=== PATIENT | male | born 1980 | race Caucasian/White ===

== ENCOUNTER 2020-04-24 12:11 | Emergency (ER) | payer SELFPAY ==
[~2020-04-24] VITALS: Ht 182.9 cm; Wt 102.0 kg
--- NOTE | 2020-04-24 12:36 | EKG ---
[address] [address] Test Date: 2020-04-24 Test Time: 12:27:57 Pat Name: MALLORY LOVE Department: Room: Gender: M Button Bradder: : 1980 Requested By: LORRIE RESENDIZ Order Number: [id number] Reading MD: Measurements Intervals [place] Rate: 78 P: 59 DC: 136 QRS: 57 QRSD: 86 T: 42 QT: 370 QTc: 425 Interpretive Statements SINUS RHYTHM NORMAL ECG RI6.02 No previous ECG available for comparison
--- NOTE | 2020-04-24 12:37 | PHYS DOC ---
Past History Past Medical History: Anxiety, Depression, Hypertension Past Surgical History: Other Alcohol Use: None Adult General Chief Complaint Chief Complaint: MULTIPLE COMPLAINTS HPI HPI Patient is a 39-year-old male patient with history of depression, anxiety, hypertension, who presents to the ED today with multiple complaints. Patient states he started bilateral ear pain with drainage, symptoms for 1 month. Denies any hearing loss. Is also complaining of 8 out of 10 substernal pressure-like chest pain, nausea, vomiting, diarrhea, patient states all the symptoms he denied days ago. Patient states a couple family members had similar symptoms a couple weeks ago. Patient denies any abdominal pain. Denies anything specifically exacerbating or relieving his chest pain. Review of Systems Review of Systems Constitutional: Denies fever or chills [] Eyes: Denies change in visual acuity, redness, or eye pain [] HENT: Denies nasal congestion or sore throat [] Respiratory: Denies cough or shortness of breath [] Cardiovascular: Reports chest pain GI: Denies abdominal pain, nausea, vomiting, bloody stools or diarrhea [] : Denies dysuria or hematuria [] Musculoskeletal: Denies back pain or joint pain [] Integument: Denies rash or skin lesions [] Neurologic: Denies headache, focal weakness or sensory changes [] All other systems were reviewed and found to be within normal limits, except as documented in this note. Allergies Allergies Allergies Coded Allergies Type Severity Reaction Last Updated Verified lisinopril Allergy Unknown 04/24/20 Yes Physical Exam Physical Exam Constitutional: Well developed, well nourished, no acute distress, non-toxic appearance. [] HENT: Normocephalic, atraumatic, bilateral external ears normal, oropharynx moist, no oral exudates, nose normal. Bilateral ear canals are erythematous and have small amount of exuduate some is dry some is still moist. Bilateral TMs with no signs of infection. Eyes: PERRLA, EOMI, conjunctiva normal, no discharge. [] Neck: Normal range of motion, no tenderness, supple, no stridor. [] Cardiovascular:Heart rate regular rhythm, no murmur [] Lungs & Thorax: Bilateral breath sounds clear to auscultation [] Abdomen: Bowel sounds normal, soft, no tenderness, no masses, no pulsatile masses. [] Skin: Warm, dry, no erythema, no rash. [] Back: No tenderness, no CVA tenderness. [] Extremities: No tenderness, no cyanosis, no clubbing, ROM intact, no edema. [] Neurologic: Alert and oriented and noted to have 3, normal motor function, normal sensory function, no focal deficits noted. [] Psychologic: Affect normal, judgement normal, mood normal. [] Current Patient Data Vital Signs Vital Signs Date Time Temp Pulse Resp B/P (MAP) Pulse Ox O2 Delivery O2 Flow Rate FiO2 04/24/20 12:28 97.7 86 16 146/60 (88) 97 Room Air EKG EKG [address] Almaraz Sinus rhythm HR 78 no STEMI[] Radiology/Procedures Radiology/Procedures []PROCEDURE: PORTABLE CHEST 1V Study: XR CHEST 1V Indication: Chest pain/pressure. Comparison: None. Findings: The cardiomediastinal silhouette and betito are within normal limits. No localized airspace opacity, pleural effusion or pneumothorax. Partially assessed degenerative changes at the right more so than left shoulders. Impression: No acute radiographic abnormality of the chest. Electronically signed by: JERICA PALACIOS MD (04/24/2020 1:24 PM) [facility] DICTATED AND SIGNED BY: JERICA PALACIOS MD DATE: 04/24/20 1324 CC: LORRIE RESENDIZ APRN; PCP,NO ~MTH0 0 Heart Score HEART Score for Chest Pain: HEART Score for Chest Pain Response (Comments) Value History Slighlty/Non-Suspicious 0 ECG Normal 0 Age < 45 0 Risk Factors 1 or 2 Risk Factors 1 Troponin < Normal Limit 0 Total 1 Risk Factors: Risk Factors: DM, Current or recent (<one month) smoker, HTN, HLP, family history of CAD, obesity. Risk Scores: Risk Factors: DM, Current or recent (<one month) smoker, HTN, HLP, family history of CAD, obesity. Course & Med Decision Making Course & Med Decision Making Pertinent Labs and Imaging studies reviewed. (See chart for details) This is a 39-year-old male patient presenting to the ED today with multiple complaints including bilateral ear pain, chest pain, nausea vomiting and diarrhea. Ear pain for 1 month, nausea vomiting diarrhea and chest pain began 3 days ago. Was tested for COVID-19. EKG is negative, troponin is normal, CBC CMP with no acute findings. Chest x- ray interpreted by radiologist as negative Patient will be discharged with oflaxacin. F/u with PCP. Derek Disclaimer Derek Disclaimer This electronic medical record was generated, in whole or in part, using a voice recognition dictation system. Departure Departure: Impression: Primary Impression: Person under investigation for COVID-19 Additional Impressions: Vomiting and diarrhea Otitis externa Chest pain Disposition: 01 DC HOME SELF CARE/HOMELESS Condition: STABLE Referrals: PCP,NO (PCP) follow up with your doctor in 1 week Patient Instructions: Chest Pain (Nonspecific), [id number], Diarrhea, Nausea and Vomiting, [id number] Additional Instructions: You were evaluated in the emergency room, your cardiac work-up is negative. Use the eardrops prescribed as ordered. Push fluids, maintain good antigen. We will call you with your Covid results if you are positive in 3-4 days. Take Tylenol/Motrin for pain or fever. Come back to the ED at any point symptoms worsen. Scripts Ofloxacin (OFLOXACIN) 5 Ml Drops 5 DROP EACH EAR BID, #10 ML 0 Refills Prov: LORRIE RESENDIZ APRN 04/24/20 Prochlorperazine Maleate (Compazine) 10 Mg Tablet 1 TAB PO Q6HRS for 7 Days, #28 TAB 0 Refills Prov: LORRIE RESENDIZ APRN 04/24/20 Dicyclomine Hcl (DICYCLOMINE HCL) 20 Mg Tablet 1 TAB PO TID, #30 TAB 1 Refill Prov: LORRIE RESENDIZ APRN 04/24/20 Problem Qualifiers Additional Impressions: Otitis externa Otitis externa type: other infective Chronicity: acute Laterality: bilateral Qualified Codes: H60.393 - Other infective otitis externa, bilateral Chest pain Chest pain type: unspecified Qualified Codes: R07.9 - Chest pain, unspecified LORRIE RESENDIZ APRN Apr 24, 2020 12:37
[2020-04-24] MEDS ORDERED: MORPHINE SULFATE 2 MG/ML DISP.SYRIN. IV/SQ PRN (12:45)
[2020-04-24] MEDS ORDERED: NITROGLYCERIN SUBLINGUAL 0.4 MG BOTTLE OF 25. SL PRN (12:45)
[2020-04-24] MEDS ORDERED: ASPIRIN 325 MG TABLET PO ONE (12:45)
[2020-04-24 13:25] LABS: BASO % 0 % (0-3); EOS # 0.1 x10^3/uL (0.0-0.7); EOS % 1 % (0-3); HEMATOCRIT 39.7 % (39.0-53.0); HEMOGLOBIN 13.6 g/dL (13.0-17.5); LYMPH # 2.7 x10^3/uL (1.0-4.8); LYMPH % 25 % (24-48); MEAN CORPUSCULAR HEMOGLOBIN 32 pg (25-35); MEAN CORPUSCULAR HGB CONC 34 g/dL (31-37); MEAN CORPUSCULAR VOLUME 94 fL (79-100); MONO # 0.9 x10^3/uL (0.0-1.1); MONO % 8 % (0-9); NEUT # 7.2 x10^3uL (1.8-7.7); NEUT % 66 % (31-73); PLATELET COUNT 262 x10^3/uL (140-400); RED BLOOD COUNT 4.21 x10^6/uL (4.30-5.70); RED CELL DISTRIBUTION WIDTH 13.4 % (11.5-14.5)
--- NOTE | 2020-04-24 13:26 | RAD ---
Study: XR CHEST 1V Indication: Chest pain/pressure. Comparison: None. Findings: The cardiomediastinal silhouette and betito are within normal limits. No localized airspace opacity, pl eural effusion or pneumothorax. Partially assessed degenerative changes at the right more so than left shoulders. Impression: No acute radiographic abnormality of the chest. Electronically signed by: JERICA PALACIOS MD (04/24/2020 1:24 PM) [facility]
[2020-04-24 13:37] LABS: CALCIUM 9.1 mg/dL (8.5-10.1); CREATININE 1.1 mg/dL (0.7-1.3); GFR 73.8; POTASSIUM 3.6 mmol/L (3.5-5.1)
[2020-04-24 13:52] LABS: ALBUMIN 3.9 g/dL (3.4-5.0); ALBUMIN/GLOBULIN RATIO 1.1 (1.0-1.7); MAGNESIUM 2.1 mg/dL (1.8-2.4); TOTAL BILIRUBIN 0.5 mg/dL (0.2-1.0); TOTAL PROTEIN 7.5 g/dL (6.4-8.2)
[2020-04-24] MEDS ORDERED: PROC10TA57 PO (14:44)
[2020-04-24] MEDS ORDERED: OFLO5DRO7 EACH EAR (14:44)
[2020-04-24] MEDS ORDERED: DICY20TA3 PO (14:44)
[2020-04-24 15:15] VITALS: BP 130/86
[2020-04-24 15:23] LABS: BARBITURATES NEG (NEG); BENZODIAZEPINES NEG (NEG); CANNABINOIDS POS (NEG); COCAINE NEG (NEG); METHADONE NEG (NEG); OPIATES POS (NEG); PHENCYCLIDINE NEG (NEG)
[2020-04-24 15:24] LABS: AMPHETAMINE/METHAMPHETAMINE NEG (NEG)
[2020-04-24 17:06] LABS: BACTERIA,URINE 0 /HPF (0-FEW); BILIRUBIN,URINE NEG (NEG); CLARITY,URINE CLEAR; COLOR,URINE AMBER; GLUCOSE,URINE NEG (NEG); NITRITE,URINE NEG (NEG); RBC,URINE 0 /HPF (0-2); SQUAMOUS EPITHELIAL CELL,UR OCC /LPF; UROBILINOGEN,URINE 0.2 mg/dL (0.2 mg/dL); WBC,URINE 0 /HPF (0-4)
--- NOTE | 2020-04-28 10:52 | NUR ---
Infection control: Call to pt at listed number w/COVID results; message taken by male identifying himself as pt's father. Number provided for callback, "most likely tomorrow".
== END 2020-04-24 15:30 | disposition home or self-care (01) ==
LOC: ER 12:11
DX: H60.393 Other infective otitis externa, bilateral (principal); Z20.822 Contact with and (suspected) exposure to COVID-19; R11.2 Nausea with vomiting, unspecified; R19.7 Diarrhea, unspecified; R07.89 Other chest pain; I10 Essential (primary) hypertension; Z88.8 Allergy status to other drugs, medicaments and biological substances
CPT/HCPCS: 36415; 71045; 80053; 80307; 81001; 82553; 83690; 83735; 83880; 84443; 84484; 85025; 93005; 99285; C9803; U0003